=== PATIENT | female | born 1980 | race Caucasian/White ===

== ENCOUNTER 2021-09-20 16:48 | Emergency (ER) | payer OTHER ==
[~2021-09-20] VITALS: Ht 165.1 cm; Wt 98.0 kg
[2021-09-20 16:59] VITALS: BP 145/80
--- NOTE | 2021-09-20 17:05 | NUR ---
Ilia contreras in [facility] - 09/20/21 at 1711 by [email or web address] PT AMB TO BED 4.
--- NOTE | 2021-09-20 17:10 | NUR ---
48 Y/O FEMALE BIB SELF C/O INTERMITTENT EPIGASTRIC PAIN RATED 10/10. PAIN RADIATES TO LOWER ABDOMEN AND BACK. PT STATES THE PAIN IS A "CRAMPING" SENSATION. PT STATES SHE HAS ALSO HAD A FEW EPISODE OF DIARRHEA TODAY. PT STATES TAKING IBUPROFEN WITH NO SYMPTOMATIC RELIEF. PT DENIES FEVER OR CHILLS. PT DENIES CHEST PAIN, SOB. BED LOCKED IN LOWEST POSITION. BED RAILX1. PMH:DENIES MEDS:IBUPROFEN
--- NOTE | 2021-09-20 17:11 | NUR ---
PT AMB TO BED 11.
[2021-09-20] MEDS ORDERED: ONDANSETRON 4 MG/5 ML ORASYR PO ONE (17:20)
[2021-09-20] MEDS ORDERED: NACL 0.9% 1,000 ML IV ONE (17:20)
--- NOTE | 2021-09-20 17:35 | NUR ---
US AT PT BEDSIDE
[2021-09-20 17:53] LABS: APPEARANCE,URINE CLEAR (CLEAR); BILIRUBIN,URINE NEGATIVE (NEGATIVE); BLOOD, URINE NEGATIVE (NEGATIVE); COLOR,URINE YELLOW (YELLOW); LEUKOCYTE ESTERASE ,URINE NEGATIVE (NEGATIVE); NITRITE, URINE NEGATIVE (NEGATIVE); PH,URINE 5.5 (5.0-9.0); UGLUCOSE NEGATIVE (NEGATIVE)
[2021-09-20 17:54] LABS: BASOPHILS # (AUTO) 0.1 K/uL (0.00-0.22); BASOPHILS % (AUTO) 0.6 % (0.0-2.0); EOSINOPHILS # (AUTO) 0.2 K/uL (0-0.4); EOSINOPHILS % (AUTO) 2.1 % (0.0-4.0); HEMATOCRIT 41.1 % (36-48); HEMOGLOBIN 13.7 g/dL (12.0-16.0); LYMPHOCYTES # (AUTO) 1.9 K/uL (2.5-16.5); LYMPHOCYTES % (AUTO) 21.3 % (20.5-51.1); MEAN CORPUSCULAR HEMOGLOBIN 28 pg (27-31); MEAN CORPUSCULAR HGB CONC 33 g/dL (33-37); MEAN CORPUSCULAR VOLUME 83.6 fL (80-94); MONOCYTES # (AUTO) 0.7 K/uL (0.8-1.0); MONOCYTES % (AUTO) 7.7 % (1.7-9.3); NEUTROPHILS # (AUTO) 6.1 K/uL (1.8-7.7); NEUTROPHILS % (AUTO) 68.3 % (42.2-75.2); PLATELET COUNT (AUTO) 306 K/uL (140-450); RED BLOOD CELL COUNT(AUTO) 4.92 MIL/uL (4.20-5.40); RED CELL DISTRIBUTION WIDTH 14.9 % (11.6-13.7)
[2021-09-20 18:16] LABS: ALBUMIN 3.5 g/dL (3.4-5.0); CARBON DIOXIDE 28.9 mmol/L (21-32); CREATININE 0.8 mg/dL (0.6-1.3); POTASSIUM 3.9 mmol/L (3.5-5.1); TOTAL BILIRUBIN 0.4 mg/dL (0.0-1.0)
[2021-09-20] MEDS ORDERED: ONDA-188 PO (18:59)
[2021-09-20] MEDS ORDERED: IBUP-2213 PO (18:59)
[2021-09-20] MEDS ORDERED: ACET-5629 PO ×3 (19:01→19:16)
[2021-09-20] MEDS ORDERED: ACET-8386 PO (19:29)
--- NOTE | 2021-09-20 19:31 | NUR ---
Pt report given to ADAM JAY. Transfer of care at this time.
[2021-09-20 19:52] VITALS: BP 128/74
--- NOTE | 2021-09-20 19:53 | NUR ---
Patient discharged with v/s stable. Written and verbal after care instructions given and explained. Patient alert, oriented and verbalized understanding of instructions. Ambulatory with steady gait. All questions addressed prior to discharge. ID band removed. Patient advised to follow up with PMD. Rx of NORCO (5-325), ZOFRAN, AND IBUPROFEN given. Patient educated on indication of medication including possible reaction and side effects. Opportunity to ask questions provided and answered. VSS, A/OX4, UNLABORED BREATHING, AMBULATORY, AND CALM DEMEANOR.
== END 2021-09-20 19:50 | disposition home or self-care (01) ==
LOC: MED 16:48
DX: K80.20 Calculus of gallbladder without cholecystitis without obstruction (principal); Z79.899 Other long term (current) drug therapy; K76.0 Fatty (change of) liver, not elsewhere classified
CPT/HCPCS: 36415; 76705; 80053; 81003; 84702; 85025; 99284; J7030; Q0092; Q0162